=== PATIENT | female | born 1965 | race Caucasian/White ===

== ENCOUNTER 2022-10-12 16:54 | Observation (INO) | payer BC ==
[2022-10-12 18:00] LABS: Basophils # (A) 0.1 k/uL (0-0.2); Basophils % (A) 1 %; Eosinophils # (A) 0.2 k/uL (0-0.7); Eosinophils % (A) 3 %; HCT 46.6 % (34.0-46.0); HGB 15.4 gm/dL (11.4-16.0); Lymphocytes # (A) 1.9 k/uL (1.0-4.8); Lymphocytes % (A) 29 %; MCH 31.4 pg (25.0-35.0); MCV 95.2 fL (80.0-100.0); Mean Platelet Volume 8.2; Monocytes # (A) 0.5 k/uL (0-1.0); Monocytes % (A) 8 %; Neutrophils # (A) 3.9 k/uL (1.3-7.7); Neutrophils % (A) 59 %; Platelet Count 264 k/uL (150-450); RBC 4.89 m/uL (3.80-5.40); RDW 12.1 % (11.5-15.5); WBC 6.7 k/uL (3.8-10.6)
[2022-10-12] MEDS ORDERED: HYDROmorphone 1 MG/ML 1 ML SYRINGE IVP STA (18:02)
[2022-10-12] MEDS ORDERED: ONDANSETRON 4 MG/2 ML VIAL IVP STA (18:02)
[2022-10-12] MEDS ORDERED: FAMOTIDINE 20 MG/2 ML VIAL IV STA (18:02)
[2022-10-12] MEDS ORDERED: PANTOPRAZOLE 40 MG/10 ML VIAL IVP STA (18:02)
[2022-10-12 18:16] LABS: INR 0.9 (<1.2); Partial Thromboplastin Time 23.3 sec (22.0-30.0)
[2022-10-12 18:17] LABS: ALT 63 U/L (4-34); AST 41 U/L (14-36); African American GFR (CKD) >90 (>60 ml/min/1.73 sqM); Albumin 4.8 g/dL (3.5-5.0); Alkaline Phosphatase 68 U/L (38-126); Anion Gap 13 mmol/L; Blood Urea Nitrogen 13 mg/dL (7-17); Calcium 10.4 mg/dL (8.4-10.2); Carbon Dioxide 22 mmol/L (22-30); Chloride 103 mmol/L (98-107); Glucose 102 mg/dL (74-99); Lipase 145 U/L (23-300); Non-African American GFR(CKD) >90 (>60 ml/min/1.73 sqM); Sodium 138 mmol/L (137-145); Total Bilirubin 0.8 mg/dL (0.2-1.3); Total Protein 8.1 g/dL (6.3-8.2)
[2022-10-12 18:26] LABS: NT-Pro-B-Type Natriuretic Pept 156 pg/mL
--- NOTE | 2022-10-12 18:36 | ED ---
Chest Pain HPI - General Source: patient Mode of arrival: ambulatory Limitations: no limitations <Bernadette Gustafson - Last Filed: 10/12/22 21:44> <Kurtis Diego - Last Filed: 10/12/22 22:40> - General Chief Complaint: Chest Pain Stated Complaint: chest pain Time Seen by Provider: 10/12/22 17:10 - History of Present Illness Initial Comments: 57-year-old female presents to the emergency room reporting chest pain. States that it started last night. Describes as a heaviness in the substernal region which radiates straight through to her shoulder blades. The pain eased up a little bit overnight and then became increasingly worse this afternoon. She admits to nausea but denies vomiting. No associated shortness of breath. Denies any fevers, chills or cough. No history of DVT or PE. No history of cardiac disease. Denies any numbness or tingling in her extremities. No other alleviating, precipitating modifying factors (Bernadette Gustafson) - Related Data Home Medications Medication Instructions Recorded Confirmed ALPRAZolam [Xanax] 0.25 mg PO TID PRN 10/12/22 10/12/22 Acetaminophen [Tylenol 8 Hour] 650 - 1,300 mg PO Q8H PRN 10/12/22 10/12/22 Ibuprofen [Advil] 200 - 400 mg PO Q8H PRN 10/12/22 10/12/22 lisinopriL [Zestril] 5 mg PO HS 10/12/22 10/12/22 Allergies Allergy/AdvReac Type Severity Reaction Status Date / Time adhesive tape Allergy Rash/Hives Verified 10/12/22 17:56 morphine AdvReac Vomiting Verified 10/12/22 17:56 sulfamethoxazole AdvReac Vomiting Verified 10/12/22 17:56 [From Bactrim] trimethoprim [From Bactrim] AdvReac Vomiting Verified 10/12/22 17:56 synthetic steroids Allergy red man Uncoded 10/12/22 17:56 syndrome Review of Systems ROS Other: All systems not noted in ROS Statement are negative. <Bernadette Gustafson - Last Filed: 10/12/22 21:44> ROS Other: All systems not noted in ROS Statement are negative. <Kurtis Diego - Last Filed: 10/12/22 22:40> ROS Statement: Those systems with pertinent positive or pertinent negative responses have been documented in the HPI. General Exam Limitations: no limitations General appearance: alert, in no apparent distress, other (tearful) Head exam: Present: atraumatic, normocephalic, normal inspection Eye exam: Present: normal appearance, PERRL, EOMI. Absent: scleral icterus, conjunctival injection, periorbital swelling ENT exam: Present: normal exam, mucous membranes moist Neck exam: Present: normal inspection. Absent: tenderness, meningismus, lymphadenopathy Respiratory exam: Present: normal lung sounds bilaterally. Absent: respiratory distress, wheezes, rales, rhonchi, stridor Cardiovascular Exam: Present: regular rate, normal rhythm, normal heart sounds. Absent: systolic murmur, diastolic murmur, rubs, gallop, clicks GI/Abdominal exam: Present: soft, normal bowel sounds. Absent: distended, tenderness, guarding, rebound, rigid Extremities exam: Present: normal inspection, full ROM, normal capillary refill. Absent: tenderness, pedal edema, joint swelling, calf tenderness Back exam: Present: normal inspection Neurological exam: Present: alert, oriented X3, CN II-XII intact Psychiatric exam: Present: normal affect, normal mood Skin exam: Present: warm, dry, intact, normal color. Absent: rash <Bernadette Gustafson - Last Filed: 10/12/22 21:44> Course Vital Signs 10/12/22 10/12/22 10/12/22 17:04 17:22 17:30 Temperature 97.8 F Pulse Rate 87 79 75 Respiratory 20 18 18 Rate Blood Pressure 151/93 137/89 137/82 O2 Sat by Pulse 98 98 98 Oximetry 10/12/22 10/12/22 10/12/22 17:40 18:00 18:10 Temperature Pulse Rate 75 76 68 Respiratory 18 22 18 Rate Blood Pressure 135/93 145/90 133/56 O2 Sat by Pulse 98 96 100 Oximetry 10/12/22 10/12/22 10/12/22 18:20 18:40 18:50 Temperature Pulse Rate 74 66 68 Respiratory 18 19 18 Rate Blood Pressure 136/67 129/76 119/69 O2 Sat by Pulse 99 98 96 Oximetry 10/12/22 10/12/22 10/12/22 19:00 19:10 19:30 Temperature Pulse Rate 70 64 67 Respiratory 18 18 6 L Rate Blood Pressure 119/69 127/70 124/62 O2 Sat by Pulse 96 94 L 98 Oximetry 10/12/22 10/12/22 10/12/22 20:00 20:30 21:00 Temperature Pulse Rate 71 64 84 Respiratory 12 19 23 Rate Blood Pressure 120/71 116/59 117/63 O2 Sat by Pulse 98 97 96 Oximetry 10/12/22 10/12/22 21:30 21:59 Temperature 97.3 F L Pulse Rate 65 Respiratory 11 L Rate Blood Pressure 113/60 O2 Sat by Pulse 96 Oximetry Chest Pain MDM <SjBernadette A - Last Filed: 10/12/22 21:44> <Kurtis Diego - Last Filed: 10/12/22 22:40> - MDM Was pt. sent in by a medical professional or institution (Dr. PA, GAS OPERATOR, urgent care, hospital, or senior living...) When possible be specific @ -No Did you speak to anyone other than the patient for history (EMS, parent, family, police, friend...)? What history was obtained from this source @ -I spoke with the patient's daughters Did you review nursing and triage notes (agree or disagree)? Why? @ -I reviewed and agree with nursing and triage notes Were old charts reviewed (outside hosp., previous admission, EMS record, old EKG, old radiological studies, urgent care reports/EKG's, senior living records)? Report findings @ -No old charts were reviewed Differential Diagnosis (chest pain, altered mental status, abdominal pain women, abdominal pain men, vaginal bleeding, weakness, fever, dyspnea, syncope, heada moustapha, dizziness, GI bleed, back pain, seizure, CVA, palpatations, mental health, musculoskeletal)? @ -Differential Chest Pain: Stable Angina, Unstable Angina, STEMI, NSTEMI Aortic Dissection, Pneumothorax, Musculoskeletal, Esophageal Spasm GERD, Cholecystitis, Pancreatitis, Zoster, this is not meant to be an all-inclusive list. EKG interpreted by me (3pts min.). @ -Yes and demonstrates sinus rhythm with a rate of 89. IA of 192. QRS 102. QTC of 429. Incomplete right bundle-branch block. No acute ST segment elevati ons X-rays interpreted by me (1pt min.). @ -None done CT interpreted by me (1pt min.). @ -CT is ordered and will be interpreted by Dr. Diego U/S interpreted by me (1pt. min.). @ -None done What testing was considered but not performed or refused? (CT, X-rays, U/S, labs)? Why? @ -None What meds were considered but not given or refused? Why? @ -None Did you discuss the management of the patient with other professionals (professionals i.e. , PA, GAS OPERATOR, lab, RT, psych nurse, social sciences instructor, pulmonary nurse practitioner, teacher, customer service security officer, employment case manager)? Give summary @ -I spoke with Dr. Diego who will await CT results Was smoking cessation discussed for >3mins.? @ -No Was critical care preformed (if so, how long)? @ -No Were there social determinants of health that impacted care today? How? (Homelessness, low income, unemployed, alcoholism, drug addiction, transportation, low edu. Level, literacy, decrease access to med. care, intermediate, rehab)? @ -No Was there de-escalation of care discussed even if they declined (Discuss DNR or withdrawal of care, Hospice)? DNR status @ -No What co-morbidities impacted this encounter? (DM, HTN, Smoking, COPD, CAD, Cancer, CVA, ARF, Chemo, Hep., AIDS, mental health diagnosis, sleep apnea, morbid obesity)? @ -None Was patient admitted / discharged? Hospital course, mention meds given and route, prescriptions, significant lab abnormalities, going to OR and other pertinent info. @ -Upon arrival the patient is placed into room 19. A thorough history and physical exam was performed. IV access is established and laboratory studies were conducted. Patient was given 1 mg of Dilaudid, 4 mg of Zofran, 20 mg of Protonix. Laboratory studies are reviewed. D-dimer is negative. I did order a CT of the patient's chest and she continues to report chest discomfort with radiation straight through to the back. Patient was aware of the risks and benefits of performing a CT was agreeable. A CT is pending at this time the case will be signed out to Dr. Diego Undiagnosed new problem with uncertain prognosis? @ -yes Drug Therapy requiring intensive monitoring for toxicity (Heparin, Nitro, Insulin, Cardizem)? @ -No Were any procedures done? @ -No Diagnosis/symptom? @ -acute chest pain Acute, or Chronic, or Acute on Chronic? @ -acute Uncomplicated (without systemic symptoms) or Complicated (systemic symptoms)? @ -Complicated Side effects of treatment? @ -No Exacerbation, Progression, or Severe Exacerbation? @ -No Poses a threat to life or bodily function? How? (Chest pain, [place], [place], pneumonia, PE, COPD, DKA, ARF, appy, cholecystitis, CVA, Diverticulitis, Homicidal, Suicidal, threat to staff... and all critical care pts) @ -Yes, chest pain could indicate dissection, aneurysm, coronary event or PE all of which the patient is worked up for (Bernadette Gustafson) CT negative for aortic dissection or aneurysm. Patient continues to have symptoms will be admitted for symptomatically treatment, serial cardiac enzymes, will obtain ultrasound of the gallbladder which is currently pending. (Kurtis Diego) Disposition <Bernadette Gustafson - Last Filed: 10/12/22 21:44> Is patient prescribed a controlled substance at d/c from ED?: No Time of Disposition: 22:40 <Kurtis Diego - Last Filed: 10/12/22 22:40> Clinical Impression: Chest pain, Breast nodule Disposition: ADMITTED IP TO THIS HOSP Condition: Stable Referrals: Adolfo Palma MD [Primary Care Provider] - 1-2 days
--- NOTE | 2022-10-12 22:02 | CT ---
EXAMINATION TYPE: CT angio chest CT DLP: 776.8 mGycm, Automated exposure control for dose reduction was used. DATE OF EXAM: 10/12/2022 9:44 PM COMPARISON: Chest radiograph from same day. Multiple CTs of the chest with most recent on . CLINICAL INDICATION:Female, 57 years old with history of chest pain to back; Chest and back pain. TECHNIQUE/CONTRAST: CTA scan of the thorax is performed with IV Contrast, patient injected with 100 ml mL of Isovue 370, MIP images are created and reviewed these are created on a separate workstation.. FINDINGS: Lungs/Pleura: No evidence of focal consolidation, pleural effusion or pneumothorax. Airway: The heart is mildly enlarged for size. Vasculature: No evidence for intramural hematoma on noncontrast. No evidence of intimal flap to sugge st dissection. No aneurysm identified. Scattered atherosclerotic disease. Mediastinum: No gross evidence of adenopathy. Musculoskeletal: No acute osseous abnormalities Soft Tissues: Right breast nodular area measuring 14 x 12 mm. With eccentric axillary lymph node whic h is thickened with the cortex measuring up to 6 mm. Additional area in the left inferior r breast medially measuring 20 x 7 mm. Lower neck: No significant findings. Upper Abdomen: Diffuse low-attenuation to the liver parenchyma.. IMPRESSION: 1. Right breast nodule measuring up to 14 mm with abnormal appearing lymph node in the right axilla. Further workup with diagnostic mammogram with ultrasound recommended. 2. Left breast inferior medial nodular-like area also should be evaluated with diagnostic ultrasound . 3. No evidence for aortic dissection, intramural hematoma, aortic aneurysm or acute process. 4. Hepatic steatosis.
[2022-10-12] MEDS ORDERED: HYDROmorphone 0.5 MG/0.5 ML SYRINGE IVP PRN (22:36)
[2022-10-12] MEDS ORDERED: NALOXONE 0.4 MG/ML 1 ML VIAL IV PRN (22:36)
[2022-10-12] MEDS ORDERED: ONDANSETRON 4 MG/2 ML VIAL IVP PRN (22:36)
[2022-10-12] MEDS ORDERED: ASPIRIN 325 MG TAB PO STA (22:38)
[2022-10-12] MEDS ORDERED: SODIUM CHLORIDE 0.9% 1,000 ML IV SCH (22:45)
--- NOTE | 2022-10-12 23:25 | US ---
EXAM: US Abdomen Limited, Gallbladder CLINICAL HISTORY: ITS.REASON US Reason: epigastric pain TECHNIQUE: Real-time ultrasound of the right upper quadrant with image documentation. COMPARISON: No relevant prior studies available. FINDINGS: Liver: Hepatic steatosis. Gallbladder: Negative Nathan sign. No gallstones. Common bile duct: Unremarkable as visualized. No stones. No dilation. Pancreas: Unremarkable as visualized. IMPRESSION: Hepatic steatosis.
[2022-10-12] MEDS: ASPIRIN 81 MG PO SCH (23:50)
[2022-10-13] MEDS: ACETAMINOPHEN TAB 325 MG TAB PO PRN ×2 (00:22→08:52)
[2022-10-13 02:56] VITALS: RESP 16; TEMP 97.9
[2022-10-13 03:58] LABS: Basophils % (A) 0 %; Eosinophils # (A) 0.1 k/uL (0-0.7); Eosinophils % (A) 2 %; HGB 14.4 gm/dL (11.4-16.0); Lymphocytes # (A) 1.9 k/uL (1.0-4.8); Lymphocytes % (A) 24 %; MCH 32.3 pg (25.0-35.0); MCHC 34.2 g/dL (31.0-37.0); MCV 94.4 fL (80.0-100.0); Mean Platelet Volume 8.4; Monocytes # (A) 0.4 k/uL (0-1.0); Monocytes % (A) 5 %; Neutrophils % (A) 66 %; Platelet Count 242 k/uL (150-450); RBC 4.45 m/uL (3.80-5.40); RDW 12.4 % (11.5-15.5); WBC 7.6 k/uL (3.8-10.6)
[2022-10-13 04:05] LABS: ALT 51 U/L (4-34); AST 34 U/L (14-36); African American GFR (CKD) >90 (>60 ml/min/1.73 sqM); Albumin 3.9 g/dL (3.5-5.0); Alkaline Phosphatase 51 U/L (38-126); Amylase 44 U/L (30-110); Anion Gap 8 mmol/L; Blood Urea Nitrogen 10 mg/dL (7-17); Calcium 9.1 mg/dL (8.4-10.2); Carbon Dioxide 23 mmol/L (22-30); Chloride 106 mmol/L (98-107); Glucose 103 mg/dL (74-99); Lipase 100 U/L (23-300); Non-African American GFR(CKD) >90 (>60 ml/min/1.73 sqM); Potassium 4.6 mmol/L (3.5-5.1); Sodium 137 mmol/L (137-145); Total Bilirubin 0.6 mg/dL (0.2-1.3); Total Protein 6.6 g/dL (6.3-8.2)
[2022-10-13] MEDS ORDERED: ALPRAZolam 0.25 MG TAB PO PRN (06:49)
--- NOTE | 2022-10-13 06:51 | P.HPIM ---
History of Present Illness H&P Date: 10/12/22 Chief Complaint: chest pain 57 year old female with hypertension she is coming in due to sudden onset central retrosternal chest pain 9/10 sharp pain radiates to the back , with dizziness and worse with breathing, no sweating, no nausea or vomiting , denies any trauma. denies any cardiac history , no fever ,chills or URI symptoms she recently was moving furniture and deep cleaning her house. no recent travel or hospital stay , no history of blood clots, no cardiac workup in the past her dad has a pacemaker but not aware of cardiac history details denies smoking illicit drugs or alcohol review of systems Pertinent positives as noted in HPI. All other systems were reviewed and are negative Constitutional: No acute distress, conversant, pleasant Eyes: Anicteric sclerae, moist conjunctiva, Pupils equal round reactive to light ENMT: NC/AT Oropharynx clear, no erythema, or exudates Neck: Supple, no masses, or JVD No carotid bruits No thyromegaly Lungs: Clear to auscultation Clear to percussion Normal respiratory effort, no accessory muscle use Cardiovascular: Heart regular in rate and rhythm, No murmurs, gallops, or rubs No peripheral edema Abdominal: Soft Nontender, no guarding, rebound or rigidity Abdomen moving with respiration Normoactive bowel sounds No hepatomegaly, No splenomegaly No palpable mass No abdominal wall hernia noted Skin: Normal temperature, tone, texture, turgor No induration No subcutaneous nodules No rash, lesions No ulcers Extremities: No digital cyanosis No clubbing Pedal pulses intact and symmetrical Radial pulses intact and symmetrical No calf tenderness Psychiatric: Alert and oriented to person, place and time Appropriate affect fair judgement Neuro Muscles Strength 5/5 in all 4 extremities Sensation to light touch grossly present throughout Cranial nerves II-XII grossly intact Lymphatics: no palpable cervical or supraclavicular lymph nodes Past Medical History Past Medical History: Hyperlipidemia, Hypertension History of Any Multi-Drug Resistant Organisms: None Reported Past Surgical History: Appendectomy, Hysterectomy, Orthopedic Surgery Past Anesthesia/Blood Transfusion Reactions: No Reported Reaction Past Psychological History: Anxiety Additional Psychological History / Comment(s): pt and family state pt has anxiety Smoking Status: Never smoker Medications and Allergies Home Medications Medication Instructions Recorded Confirmed Type ALPRAZolam [Xanax] 0.25 mg PO TID PRN 10/12/22 10/12/22 History Acetaminophen [Tylenol 8 Hour] 650 - 1,300 mg PO Q8H PRN 10/12/22 10/12/22 History Ibuprofen [Advil] 200 - 400 mg PO Q8H PRN 10/12/22 10/12/22 History lisinopriL [Zestril] 5 mg PO HS 10/12/22 10/12/22 History Allergies Allergy/AdvReac Type Severity Reaction Status Date / Time adhesive tape Allergy Rash/Hives Verified 10/12/22 17:56 morphine AdvReac Vomiting Verified 10/12/22 17:56 sulfamethoxazole AdvReac Vomiting Verified 10/12/22 17:56 [From Bactrim] trimethoprim [From Bactrim] AdvReac Vomiting Verified 10/12/22 17:56 synthetic steroids Allergy red man Uncoded 10/12/22 17:56 syndrome Physical Exam Vitals: Vital Signs Temp Pulse Pulse Resp BP BP Pulse Ox 10/13/22 03:34 68 10/13/22 00:34 97.9 F 68 16 129/73 97 10/12/22 23:30 98.0 F 76 17 143/81 97 10/12/22 22:47 73 18 133/67 99 10/12/22 21:59 97.3 F L 10/12/22 21:30 65 11 L 113/60 96 10/12/22 21:00 84 23 117/63 96 10/12/22 20:30 64 19 116/59 97 10/12/22 20:00 71 12 120/71 98 10/12/22 19:30 67 6 L 124/62 98 10/12/22 19:10 64 18 127/70 94 L 10/12/22 19:00 70 18 119/69 96 10/12/22 18:50 68 18 119/69 96 10/12/22 18:40 66 19 129/76 98 10/12/22 18:20 74 18 136/67 99 10/12/22 18:10 68 18 133/56 100 10/12/22 18:00 76 22 145/90 96 10/12/22 17:40 75 18 135/93 98 10/12/22 17:30 75 18 137/82 98 10/12/22 17:22 79 18 137/89 98 10/12/22 17:04 97.8 F 87 20 151/93 98 Intake and Output 10/12/22 10/12/22 10/13/22 14:59 22:59 06:59 Other: # Voids 2 Weight 86.183 kg Results CBC & Chem 7: 10/13/22 03:43 10/13/22 03:43 Labs: Abnormal Lab Results - Last 24 Hours (Table) 10/12/22 10/12/22 10/13/22 Range/Units 17:22 17:22 03:43 Hct 46.6 H (34.0-46.0) % Glucose 102 H 103 H (74-99) mg/dL Calcium 10.4 H (8.4-10.2) mg/dL AST 41 H (14-36) U/L ALT 63 H 51 H (4-34) U/L Thrombosis Risk Factor Assmnt - Choose All That Apply Any of the Below Risk Factors Present?: Yes Each Factor Represents 1 point: Age 41-60 years, Obesity (BMI >25) Thrombosis Risk Factor Assessment Total Risk Factor Score: 2 Thrombosis Risk Factor Assessment Level: Low Risk Assessment and Plan Assessment: 57 year old female with atypical chest pain , all workup negative , I discssed the case with ED doc and I accepted the admission for atypical chest pain to rule out ACS with anticipated length of stay < 2 midnights atypical chest pain d dimer negative CTA chest negative , but showed 2 breast nodules aspirin daily trops negative X 2 cardiology consult protonix daily EKG no acute st changes hypertension, controlled resume lisinopril incidental finding of breast nodules , patient made aware to follow up with mammograms full code DVT PPX heparin sc tid
[2022-10-13] MEDS: ASPIRIN 81 MG PO SCH (08:51)
[2022-10-13] MEDS ORDERED: PANTOPRAZOLE 40 MG/10 ML VIAL IV SCH (09:00)
[2022-10-13 10:12] VITALS: BP 110/56; PULSE 62
--- NOTE | 2022-10-13 10:38 | P.CRDCN ---
History of Present Illness Consult date: 10/13/22 Consult reason: chest pain History of present illness: History of present illness: This is a 57 year old female with no previous cardiac history, no previous cardiac workup. She has a past medical history of hypertension, hyperlipidemia unable to tolerate statins and recently stopped Repatha with advisement of PCP, generalized anxiety disorder. We have been asked to evaluate the patient for chest pain. Patient states she developed chest pain between her shoulder blades and then came around a wrapped around her chest that was a heaviness. Started on Wednesday evening and was constant through Wednesday but less severe. He remained there and seemed to be relieved when she belched. She states she has been doing a lot of cleaning up. For her grandchild. She also noticed the pain when she turned in bed. She had a similar episode on Wednesday of last week and she took Tums with some relief. She denies having any shortness of breath, but is noted anxiety. No lower extremity edema, no dizziness. She has had a little lightheadedness and a little flutter in her chest. No cough no fever, no blood in her stools, no blood in urine. No TIA symptoms. Patient is a nonsmoker. No history of diabetes. EKG sinus rhythm with no acute ST changes. CTA of the chest revealed a right breast nodule measuring 14 mm an abnormal left node in the right axilla. Left breast inferior medial nodular-like area reevaluated by ultrasound. Hepatic steatosis. No evidence of aortic dissection, intramural hematoma, aortic aneurysm or acute process. Gallbladder ultrasound revealed hepatic steatosis CBC is unremarkable. D-dimer less than 0.17. Electrolytes renal function normal. Troponin negative 3. ALT 51 otherwise liver function tests are currently normal. Lipase 100. Home cardiac medications: Lisinopril 5 mg at bedtime Review Of Systems: At the time of my evaluation: Constitutional: No fever, no chills. No weakness, fatigue or lethargy. EENT: No headache. No dizziness. Lungs: No shortness of breath, cough, no sputum production. No wheezing. Cardiovascular: No chest pain, no lower extremity edema. No palpitations. No paroxysmal nocturnal dyspnea. No orthopnea. No lightheadedness or dizziness. No syncopal episodes. Abdominal: No abdominal pain. No nausea, vomiting. No diarrhea. No constipation. No bloody or tarry stools. Genitourinary: No dysuria.. No urinary retention. Musculoskeletal: No myalgias. No muscle weakness, no frequent falls. No back pain. No neck pain. Integumentary: No wounds. No rash. No unusual bruising. Neurologic: No aphasia. No facial droop. No change in mentation. No head injury. No headache. Physical examination: Gen: This is a 57-year-old female. She is resting but appears to be comfortable and in no acute distress. VS: reviewed HEENT: Head is atraumatic, normocephalic. Pupils equal, round. Sclerae is anicteric. NECK: Supple. No JVD. . LUNGS: Clear to auscultation. No wheezes or rhonchi. No intercostal retractions. HEART: Regular rate and rhythm. No murmur. ABDOMEN: Soft No tenderness. EXTREMITIES: No pedal edema. No calf tenderness. NEUROLOGICAL: Patient is awake, alert and oriented x3. Assessment: Chest pain, acute coronary syndrome ruled out, most likely musculoskeletal related Hypertension Hyperlipidemia intolerant of statins Plan: Continue lisinopril Obtain stress echocardiogram Obtain 2-D echocardiogram and Doppler study to assess cardiac structure and function If stress test and echocardiogram are unremarkable, patient is cleared for discharge from cardiology and may follow-up in the office in one to 2 weeks. Thank you kindly for this consultation. Nurse practitioner note has been reviewed, I agree with documented findings and plan of care. Patient was seen and examined. Past Medical History Past Medical History: Hyperlipidemia, Hypertension History of Any Multi-Drug Resistant Organisms: None Reported Past Surgical History: Appendectomy, Hysterectomy, Orthopedic Surgery Past Anesthesia/Blood Transfusion Reactions: No Reported Reaction Past Psychological History: Anxiety Additional Psychological History / Comment(s): pt and family state pt has anxiet y Smoking Status: Never smoker Medications and Allergies Home Medications Medication Instructions Recorded Confirmed Type ALPRAZolam [Xanax] 0.25 mg PO TID PRN 10/12/22 10/12/22 History Acetaminophen [Tylenol 8 Hour] 650 - 1,300 mg PO Q8H PRN 10/12/22 10/12/22 History Ibuprofen [Advil] 200 - 400 mg PO Q8H PRN 10/12/22 10/12/22 History lisinopriL [Zestril] 5 mg PO HS 10/12/22 10/12/22 History Allergies Allergy/AdvReac Type Severity Reaction Status Date / Time adhesive tape Allergy Rash/Hives Verified 10/12/22 17:56 morphine AdvReac Vomiting Verified 10/12/22 17:56 sulfamethoxazole AdvReac Vomiting Verified 10/12/22 17:56 [From Bactrim] trimethoprim [From Bactrim] AdvReac Vomiting Verified 10/12/22 17:56 synthetic steroids Allergy red man Uncoded 10/12/22 17:56 syndrome Physical Exam Vitals: Vital Signs Temp Pulse Pulse Resp BP BP Pulse Ox 10/13/22 03:34 68 10/13/22 00:34 97.9 F 68 16 129/73 97 10/12/22 23:30 98.0 F 76 17 143/81 97 10/12/22 22:47 73 18 133/67 99 10/12/22 21:59 97.3 F L 10/12/22 21:30 65 11 L 113/60 96 10/12/22 21:00 84 23 117/63 96 10/12/22 20:30 64 19 116/59 97 10/12/22 20:00 71 12 120/71 98 10/12/22 19:30 67 6 L 124/62 98 10/12/22 19:10 64 18 127/70 94 L 10/12/22 19:00 70 18 119/69 96 10/12/22 18:50 68 18 119/69 96 10/12/22 18:40 66 19 129/76 98 10/12/22 18:20 74 18 136/67 99 10/12/22 18:10 68 18 133/56 100 10/12/22 18:00 76 22 145/90 96 10/12/22 17:40 75 18 135/93 98 10/12/22 17:30 75 18 137/82 98 10/12/22 17:22 79 18 137/89 98 10/12/22 17:04 97.8 F 87 20 151/93 98 Intake and Output 10/12/22 10/13/22 10/13/22 22:59 06:59 14:59 Other: # Voids 2 Weight 86.183 kg Results 10/13/22 03:43 10/13/22 03:43 Cardiac Enzymes 10/12/22 10/12/22 10/12/22 Range/Units 17:22 17:22 23:58 AST 41 H (14-36) U/L Troponin I <0.012 <0.012 (0.000-0.034) ng/mL 10/13/22 10/13/22 Range/Units 03:43 03:43 AST 34 (14-36) U/L Troponin I <0.012 (0.000-0.034) ng/mL Coagulation 10/12/22 Range/Units 17:22 PT 10.0 (9.0-12.0) sec APTT 23.3 (22.0-30.0) sec CBC 10/12/22 10/13/22 Range/Units 17: 03:43 WBC 6.7 7.6 (3.8-10.6) k/uL RBC 4.89 4.45 (3.80-5.40) m/uL Hgb 15.4 14.4 (11.4-16.0) gm/dL Hct 46.6 H 42.0 (34.0-46.0) % Plt Count 264 242 (150-450) k/uL Comprehensive Metabolic Panel 10/12/22 10/13/22 Range/Units 17:22 03:43 Sodium 138 137 (137-145) mmol/L Potassium 4.0 4.6 (3.5-5.1) mmol/L Chloride 103 106 (98-107) mmol/L Carbon Dioxide 22 23 (22-30) mmol/L BUN 13 10 (7-17) mg/dL Creatinine 0.56 0.54 (0.52-1.04) mg/dL Glucose 102 H 103 H (74-99) mg/dL Calcium 10.4 H 9.1 (8.4-10.2) mg/dL AST 41 H 34 (14-36) U/L ALT 63 H 51 H (4-34) U/L Alkaline Phosphatase 68 51 (38-126) U/L Total Protein 8.1 6.6 (6.3-8.2) g/dL Albumin 4.8 3.9 (3.5-5.0) g/dL Current Medications Generic Name Dose Route Start Last Admin Trade Name Freq PRN Reason Stop Dose Admin Acetaminophen 650 mg 10/12/22 22:36 10/13/22 00:22 Acetaminophen Tab 325 Mg Tab PO 650 mg Q6HR PRN Administration Mild Pain or Fever > 100.5 Alprazolam 0.25 mg 10/13/22 06:49 Alprazolam 0.25 Mg Tab PO TID PRN Anxiety Aspirin 324 mg 10/12/22 23:15 10/12/22 23:50 Aspirin 81 Mg PO 324 mg DAILY RAFAELA Administration Hydromorphone HCl 0.5 mg 10/12/22 22:36 Hydromorphone 0.5 Mg/0.5 Ml Syringe IVP Q3HR PRN Moderate Pain (Scale 4 to 6) Sodium Chloride 1,000 mls @ 75 mls/hr 10/12/22 22:45 10/12/22 22:59 Saline 0.9% IV 75 mls/hr .[id number] RAFAELA Administration Lisinopril 5 mg 10/13/22 21:00 Lisinopril 5 Mg Tab PO HS RAFAELA Naloxone HCl 0.2 mg 10/12/22 22:36 Naloxone 0.4 Mg/Ml 1 Ml Vial IV Q2M PRN Opioid Reversal Ondansetron HCl 4 mg 10/12/22 22:36 10/13/22 00:22 Ondansetron 4 Mg/2 Ml Vial IVP 4 mg Q8HR PRN Administration Nausea And Vomiting Pantoprazole Sodium 40 mg 10/13/22 09:00 Pantoprazole 40 Mg/10 Ml Vial IV DAILY RAFAELA Intake and Output 10/12/22 10/13/22 10/13/22 22:59 06:59 14:59 Other: # Voids 2 Weight 86.183 kg 10/13/22 03:43 10/13/22 03:43
--- NOTE | 2022-10-13 11:03 | CA ---
Transthoracic Echo Report Name: Silva Delaney Age: 57 Gender: F : 1965 Exam Date: 10/13/2022 09:48 Exam Location: [facility] Ht (in): 65 Wt (lb): 190 Ordering Physician: Sera Knight Attending/Referring Phys: [id number], Antonia [employer] Worker Yadira Colmenares [facility] Procedure CPT: Indications: LVF Cardiac Hx: Technical Quality: Fair Contrast 1: Total Dose (mL): Contrast 2: Total Dose (mL): MEASUREMENTS (Male / Female) Normal Values 2D ECHO LV Diastolic Diameter PLAX 4.4 cm 4.2 - 5.9 / 3.9 - 5.3 cm LV Systolic Diameter PLAX 3.3 cm IVS Diastolic Thickness 0.7 cm 0.6 - 1.0 / 0.6 - 0.9 cm LVPW Diastolic Thickness 0.9 cm 0.6 - 1.0 / 0.6 - 0.9 cm LV Relative Wall Thickness 0.4 LVOT Diameter 2.0 cm M-MODE Aortic Root Diameter MM 2.7 cm LA Systolic Diameter MM 4.3 cm LA Ao Ratio MM 1.6 AV Cusp Separation MM 2.1 cm DOPPLER AV Peak Velocity 125.0 cm/s AV Peak Gradient 6.3 mmHg AV Mean Velocity 90.7 cm/s AV Mean Gradient 3.7 mmHg AV Velocity Time Integral 27.3 cm LVOT Peak Velocity 79.7 cm/s LVOT Peak Gradient 2.5 mmHg LVOT Velocity Time Integral 17.7 cm LVOT Stroke Volume 57.8 cm??? LVOT Stroke Volume Index 29.8 ml/m??? LVOT Cardiac Index 1860.4 cm???/min???m??? AV Area Cont Eq vti 2.1 cm??? AV Area Cont Eq pk 2.1 cm??? Mitral E Point Velocity 70.6 cm/s Mitral A Point Velocity 54.4 cm/s Mitral E to A Ratio 1.3 MV Deceleration Time 201.4 ms LV E' Lateral Velocity 11.8 cm/s Mitral E to LV E' Lateral Ratio 6.0 LV E' Septal Velocity 9.1 cm/s Mitral E to LV E' Septal Ratio 7.7 TR Peak Velocity 208.1 cm/s TR Peak Gradient 17.3 mmHg Right Atrial Pressure 8.0 mmHg Pulmonary Artery Systolic Pressu 25.3 mmHg Right Ventricular Systolic Press 25.3 mmHg FINDINGS Left Ventricle Normal Left ventricular size, wall thickness, systolic function with no obvious regional wall motion abnormalities. Left ventricular ejection fraction is estimated at 55-60%. Right Ventricle Right ventricle at upper limits of normal. Moderate band was noted Right Atrium Normal right atrial size. Left Atrium Normal left atrial size. Mitral Valve Structurally normal mitral valve. Mitral valve thickened. [id number] mitral regurgitation. Aortic Valve Aortic valve not well visualized. No aortic regurgitation. Tricuspid Valve Structurally normal tricuspid valve. Mild tricuspid regurgitation. Pulmonic Valve Structurally normal pulmonic valve. Trace pulmonic regurgitation. Pericardium No pericardial effusion. Echo free space anterior to the right ventricle likely represents a fat pad. Aorta Normal size aortic root. CONCLUSIONS 1. Normal left ventricular size and systolic function 2. Mild to moderate mitral with mild tricuspid regurgitation Previewed by: Dr. Leobardo Machado MD (Electronically Signed) Final Date: 13 October 2022 11:02
--- NOTE | 2022-10-13 11:56 | CA ---
Stress Echo Report Silva Delaney Age: 57 Gender: F : 1965 Exam Date: 10/13/2022 11:15 Exam Location: [facility] Ht (in): 65 Wt (lb): 190 Ordering Physician: Sera Knight Referring Physician: Antonia Zamora;[id number] [employer] Attendant: Abby Willis RDCS Technologist Procedure CPT: Indication: CP ICD-9 Codes: Rhythm: Patient History: Atypical angina Cardiac Medications: Medications in past 24 hours: Contrast: Stress Results Protocol: Joni Total dose(mL): Exercise Duration (min:sec): 10:[address] Depression (mm): Angina Score: [place] Score: METS: 11.5 Resting HR: 80 Resting BP: 142 / 91 Peak HR: 158 Peak BP: 195 / 40 Max Predicted HR: 162 98 % Max Predicted HR Target HR: 138 Double Product: [id number] Stress Summary: The patient's target heart rate was achieved BP Response: Normal Reason for Termination: MAX EXERTION/TARGET HR Cardiac Symptoms: NO SYMPTOMS ECG Analysis Resting ECG: Normal sinus rhythm, normal ECG Stress ECG: No abnormal ST/T wave changes with exercise Arrhythmia: None Echo Analysis Resting Echo: Normal resting echocardiogram. Peak Echo Analysis: Normal wall thickening and motion MEASUREMENTS (Male/Female) Normal Values CONCLUSIONS 1. Good exercise tolerance 2. Normal electrocardiographic response to exercise 3. Normal stress echocardiogram with no evidence of stress induced ischemia Dr. Leobardo Machado MD (Electronically Signed) Final Date: 13 October 2022 11:55
--- NOTE | 2022-10-13 12:19 | P.DS ---
Providers Date of admission: 10/12/22 22:38 Expected date of discharge: 10/13/22 Attending physician: Сергей Lake MD Consults: 10/12/22 22:36 Consult Physician Routine Consulting Provider: Lyssa Kramer Consult Reason/Comments: Breast nodule Do you want consulting provider notified?: Yes Consult Physician Routine Consulting Provider: Juan Lomeli Consult Reason/Comments: CP Do you want consulting provider notified?: Yes Primary care physician: Adolfo Palma Hospital Course: Discharge Diagnosis: GERD Chest pain, ACS ruled out Hypertension Breast nodules Transaminitis Hepatic steatosis Hospital Course: 57 year old female with hypertension presented with chest pain. CBC unremarkable. Troponin negative 3. AST 41, ALT 63. EKG showed normal sinus rhythm, incomplete right bundle branch block. CTA showed right breast nodule measuring up to 14 mm, with right axillary lymph node with abnormal appearance, and left breast inferior medial nodule. Breast surgery was consulted, no acute interventions, outpatient follow-up. Gallbladder ultrasound showed hepatic steatosis. Cardiology consulted. Echo showed normal LV systolic function. Stress echo was negative. Patient seen and examined at bedside. Vital signs reviewed and stable. General: nontoxic, no distress, appears at stated age Derm: warm, dry Head: atraumatic, normocephalic, symmetric Eyes: EOMI, no lid lag, anicteric sclera Mouth: no lip lesion, mucus membranes moist Cardiovascular: S1S2 reg, no murmur Lungs: CTA bilateral, no rhonchi, no rales , no accessory muscle use Abdominal: soft, nontender to palpation, no guarding, no appreciable organomegaly Ext: no gross muscle atrophy, no edema, no contractures Neuro: CN II-XI grossly intact, no focal neuro deficits Psych: Alert, oriented, appropriate affect A total of 35 minutes of time were spent preparing this complex discharge summary. Patient was discharged on 10/13/22 at 1205. Patient Condition at Discharge: Stable Plan - Discharge Summary Discharge Rx Participant: Yes New Discharge Prescriptions: New Famotidine [Pepcid] 20 mg PO HS #30 tablet Continue Acetaminophen [Tylenol 8 Hour] 650 - 1,300 mg PO Q8H PRN PRN Reason: Pain lisinopriL [Zestril] 5 mg PO HS ALPRAZolam [Xanax] 0.25 mg PO TID PRN PRN Reason: Anxiety Discontinued Ibuprofen [Advil] 200 - 400 mg PO Q8H PRN PRN Reason: Pain Discharge Medication List ALPRAZolam [Xanax] 0.25 mg PO TID PRN 10/12/22 [History] Acetaminophen [Tylenol 8 Hour] 650 - 1,300 mg PO Q8H PRN 10/12/22 [History] lisinopriL [Zestril] 5 mg PO HS 10/12/22 [History] Famotidine [Pepcid] 20 mg PO HS #30 tablet 10/13/22 [Rx] Follow up Appointment(s)/Referral(s): Leobardo Machado MD [STAFF PHYSICIAN] - 1 Week Adolfo Palma MD [Primary Care Provider] - 1-2 days Patient Instructions/Handouts: Noncardiac Chest Pain (DC), Breast Mass (GEN) Activity/Diet/Wound Care/Special Instructions: Please see cardiology and PCP. You need further evaluation of breast nodules. Discharge Disposition: HOME SELF-CARE
--- NOTE | 2022-10-13 13:46 | P.GSHP ---
History of Present Illness H&P Date: 10/13/22 Chief Complaint: Nodules noted on chest CT bilaterally in the breast The patient is a 57-year-old white female who was seen in the emergency Department secondary to chest pain. She was admitted to rule out cardiac etiology of his discomfort. A computed tomography scan was performed which showed bilateral breast nodules. Additionally some right axillary nodularity was identified. The patient states she does not feel any lumps masses or nodules in either breast. She had a bilateral mammogram approximately 1 year ago. She has never had any surgery on her breast. She denies any trauma or infection in the breast. Caffeine: One cup per day Nicotine: Negative Chocolate: Occasional With control pills: Approximately 2 years in the remote past Hormones: Negative Family history: Other: Rectal cancer Father: Orbital non-Hodgkin's lymphoma Paternal grand mother colon or ovarian cancer Paternal aunt colon or ovarian cancer Hormonal history: A 213 . First child born at 23, did not breast-feed Menopause: 53 Surgical history: Appendectomy Back surgery Foot surgery Shoulder surgery Hysterectomy 1 ovary was left Laparoscopic evaluations Medical history: Hypertension High cholesterol Social history: Nicotine: Negative - Constitutional Constitutional: Denies chills, Denies fever - EENT Eyes: denies blurred vision, denies pain Ears: deny: decreased hearing - Breasts Breasts: bilateral: as per HPI - Cardiovascular Cardiovascular: Reports as per HPI - Respiratory Respiratory: Denies cough, Denies 7 - Gastrointestinal Gastrointestinal: Reports as per HPI - Menstruation Menstruation: Reports postmenopausal - Psychiatric Psychiatric: Reports anxiety - Allergic/Immunologic Allergic/Immunologic: Reports as per HPI Past Medical History Past Medical History: Hyperlipidemia, Hypertension History of Any Multi-Drug Resistant Organisms: None Reported Past Surgical History: Appendectomy, Hysterectomy, Orthopedic Surgery Past Anesthesia/Blood Transfusion Reactions: No Reported Reaction Past Psychological History: Anxiety Additional Psychological History / Comment(s): pt and family state pt has anxiety Smoking Status: Never smoker Medications and Allergies Home Medications Medication Instructions Recorded Confirmed Type ALPRAZolam [Xanax] 0.25 mg PO TID PRN 10/12/22 10/12/22 History Acetaminophen [Tylenol 8 Hour] 650 - 1,300 mg PO Q8H PRN 10/12/22 10/12/22 History lisinopriL [Zestril] 5 mg PO HS 10/12/22 10/12/22 History Famotidine [Pepcid] 20 mg PO HS #30 tablet 10/13/22 Rx Allergies Allergy/AdvReac Type Severity Reaction Status Date / Time adhesive tape Allergy Rash/Hives Verified 10/12/22 17:56 morphine AdvReac Vomiting Verified 10/12/22 17:56 sulfamethoxazole AdvReac Vomiting Verified 10/12/22 17:56 [From Bactrim] trimethoprim [From Bactrim] AdvReac Vomiting Verified 10/12/22 17:56 synthetic steroids Allergy red man Uncoded 10/12/22 17:56 syndrome Surgical - Exam Vital Signs Temp Pulse Resp BP Pulse Ox 97.8 F 87 20 151/93 98 10/12/22 17:04 10/12/22 17:04 10/12/22 17:04 10/12/22 17:04 10/12/22 17:04 - General no distress - Eyes normal ocular movement - Neck trachea midline - Respiratory normal respiratory effort, clear to auscultation - Cardiovascular Rhythm: regular Heart Sounds: normal: S1, S2 - Abdomen Abdomen: soft, non tender, no guarding, no rigid, no rebound - Integumentary Normal turgor - Neurologic no disoriented, no combative - Psychiatric oriented to time, oriented to person, oriented to place, speech is normal, memory intact Breast examination: Inspection: Bilateral grade 2 ptosis Right breast: Multiple positional exam fibrocystic changes no dominant masses or nodules of concern Right axilla: No adenopathy of concern Left breast: Multiple positional exam no dominant masses or nodules of concern Left axilla: No adenopathy of concern Results Computed tomography scan reviewed - Labs 10/13/22 03:43 10/13/22 03:43 Abnormal Lab Results - Last 24 Hours (Table) 10/12/22 10/12/22 10/13/22 Range/Units 17:22 17:22 03:43 Hct 46.6 H (34.0-46.0) % Glucose 102 H 103 H (74-99) mg/dL Calcium 10.4 H (8.4-10.2) mg/dL AST 41 H (14-36) U/L ALT 63 H 51 H (4-34) U/L Diabetes panel 10/12/22 10/13/22 Range/Units 17:22 03:43 Sodium 138 137 (137-145) mmol/L Potassium 4.0 4.6 (3.5-5.1) mmol/L Chloride 103 106 (98-107) mmol/L Carbon Dioxide 22 23 (22-30) mmol/L BUN 13 10 (7-17) mg/dL Creatinine 0.56 0.54 (0.52-1.04) mg/dL Glucose 102 H 103 H (74-99) mg/dL Calcium 10.4 H 9.1 (8.4-10.2) mg/dL AST 41 H 34 (14-36) U/L ALT 63 H 51 H (4-34) U/L Alkaline Phosphatase 68 51 (38-126) U/L Total Protein 8.1 6.6 (6.3-8.2) g/dL Albumin 4.8 3.9 (3.5-5.0) g/dL Calcium panel 10/12/22 10/13/22 Range/Units 17:22 03:43 Calcium 10.4 H 9.1 (8.4-10.2) mg/dL Albumin 4.8 3.9 (3.5-5.0) g/dL Pituitary panel 10/12/22 10/13/22 Range/Units 17:22 03:43 Sodium 138 137 (137-145) mmol/L Potassium 4.0 4.6 (3.5-5.1) mmol/L Chloride 103 106 (98-107) mmol/L Carbon Dioxide 22 23 (22-30) mmol/L BUN 13 10 (7-17) mg/dL Creatinine 0.56 0.54 (0.52-1.04) mg/dL Glucose 102 H 103 H (74-99) mg/dL Calcium 10.4 H 9.1 (8.4-10.2) mg/dL Adrenal panel 10/12/22 10/13/22 Range/Units 17:22 03:43 Sodium 138 137 (137-145) mmol/L Potassium 4.0 4.6 (3.5-5.1) mmol/L Chloride 103 106 (98-107) mmol/L Carbon Dioxide 22 23 (22-30) mmol/L BUN 13 10 (7-17) mg/dL Creatinine 0.56 0.54 (0.52-1.04) mg/dL Glucose 102 H 103 H (74-99) mg/dL Calcium 10.4 H 9.1 (8.4-10.2) mg/dL Total Bilirubin 0.8 0.6 (0.2-1.3) mg/dL AST 41 H 34 (14-36) U/L ALT 63 H 51 H (4-34) U/L Alkaline Phosphatase 68 51 (38-126) U/L Total Protein 8.1 6.6 (6.3-8.2) g/dL Albumin 4.8 3.9 (3.5-5.0) g/dL Assessment and Plan Assessment: Impression: Incidental finding of nodules in both breast on computed tomography scan Fibrocystic breast changes Chest discomfort most likely musculoskeletal. GERD. Plan: Bilateral mammogram and bilateral ultrasound Appointment in office after an exam and ultrasound
[2022-10-13] MEDS ORDERED: lisinopriL 5 MG TAB PO SCH (21:00)
== END 2022-10-13 13:10 | disposition home or self-care (01) ==
LOC: EC 16:54 → 6NMEDSUR 22:38
PROVIDERS: ADMIT Internal Medicine; ATTEND Internal Medicine
DX: R07.89 Other chest pain (principal); K21.9 Gastro-esophageal reflux disease without esophagitis; I45.10 Unspecified right bundle-branch block; I10 Essential (primary) hypertension; E78.00 Pure hypercholesterolemia, unspecified; F41.1 Generalized anxiety disorder; K76.0 Fatty (change of) liver, not elsewhere classified; N63.10 Unspecified lump in the right breast, unspecified quadrant; E66.9 Obesity, unspecified; Z68.31 Body mass index [BMI] 31.0-31.9, adult; R91.8 Other nonspecific abnormal finding of lung field; Z79.899 Other long term (current) drug therapy; Z88.1 Allergy status to other antibiotic agents; Z88.5 Allergy status to narcotic agent; Z88.2 Allergy status to sulfonamides; Z88.8 Allergy status to other drugs, medicaments and biological substances; Z91.048 Other nonmedicinal substance allergy status; Z90.710 Acquired absence of both cervix and uterus; Z90.49 Acquired absence of other specified parts of digestive tract; Z90.721 Acquired absence of ovaries, unilateral; Z98.890 Other specified postprocedural states; Z80.7 Family history of other malignant neoplasms of lymphoid, hematopoietic and related tissues; Z80.41 Family history of malignant neoplasm of ovary; Z80.0 Family history of malignant neoplasm of digestive organs
CPT/HCPCS: 96376; 96374; 96375; 99285; 36415; 93005; 93306; 93351; 85379; 83880; 80053 ×2; 82150; 83690 ×2; 83735 ×2; 84484 ×2; 85025 ×2; 85610; 85730; 76705; 71275; G0378 ×2; J2405 ×2; J1170; C9113 ×2; Q9967

== ENCOUNTER → 2024-07-04 | Outpatient (CLI) | payer BC ==
[2024-07-04 14:37] VITALS: BP 143/81; PULSE 76; RESP 16; TEMP 97.8
--- NOTE | 2024-07-04 15:28 | P.SLEEP ---
History of Present Illness H&P Date: 07/04/24 This is a 58-year-old female patient was referred to me by her export packer for sleep apnea evaluation. The patient was seeing a export packer for symptoms of palpitations. She was also having atypical chest pain. The workup that was done by cardiology included a recent cardiac stress test that showed no evidence of any reversible ischemia the patient's echocardiogram that was done on 11/02/2023 and 10/13/2022 showed normal ejection fraction with mild mitral regurgitation. The patient is known to have hypertension and history of breast cancer. In terms of her breast cancer, the patient underwent bilateral mastectomy for a right-sided breast cancer followed by chemotherapy and radiation therapy to the right breast and currently she is on letrozole. The patient seems to be in remission for now. She is experiencing fatigue and sleepiness during the day. During the course of her cancer treatment, the patient has gained weight and overall she is up by around 30 pounds. She is snoring. At times, she is waking up gasping for air however this is not frequent and occurs approximately once or twice a week. Her sleep is fragmented and the patient is waking up multiple times in the middle of the night to urinate. She typically gets up around 3-4 times in the middle of the night. Sh mindi sleeps on her side as the patient has chronic lymphedema in the right upper extremity. No sleepwalking. No sleep talking. She has grinding and she is working with a dentist to get a mouthguard. No anxiety. No panic attacks. No sleep paralysis. No hallucinations. No cataplexy. Her current Bagley score is at 5. At times, the patient gets uncomfortable as the patient has chronic back pain and she has undergone previous lumbar spine surgery approximately 15 years ago. Her symptoms of sciatica have also recurred. She drinks 2 cups of coffee in the morning. Drinks alcohol socially. No substance abuse. No head trauma. No history of stroke. No history of any atrial fibrillation or congestion heart failure. Denies falling asleep while driving. Occasionally, takes naps in the afternoon. She is retired. She is involved in taking care of her grandchild, yeyo. She has worked in for a [employer] company out of [employer] [place]. The current Bagley score is at 5. Review of Systems Constitutional: Reports daytime sleepiness, Reports weight gain Ears: deny: decreased hearing, ear discharge, earache, tinnitus Cardiovascular: Reports as per HPI, Reports palpitations Respiratory: Reports snoring Gastrointestinal: Reports as per HPI Genitourinary: Reports as per HPI Menstruation: Reports as per HPI Musculoskeletal: Reports as per HPI Musculoskeletal: right: elbow swelling, wrist swelling Integumentary: Reports as per HPI Neurological: Reports as per HPI Psychiatric: Reports as per HPI Endocrine: Reports as per HPI, Reports fatigue Hematologic/Lymphatic: Reports as per HPI Allergic/Immunologic: Reports as per HPI Past Medical History Past Medical History: Cancer, Hyperlipidemia, Hypertension Additional Past Medical History / Comment(s): rt breast cancer (double mast) History of Any Multi-Drug Resistant Organisms: None Reported Past Surgical History: Appendectomy, Breast Surgery, Hysterectomy, Orthopedic Surgery Additional Past Surgical History / Comment(s): double mastectomy Past Anesthesia/Blood Transfusion Reactions: No Reported Reaction Past Psychological History: Anxiety Additional Psychological History / Comment(s): pt and family state pt has anxiety Smoking Status: Never smoker - Past Family History Father Family Medical History: Diabetes Mellitus, GERD/Reflux, Hyperlipidemia, Hypertension Additional Family Medical History / Comment(s): snoring, headaches, restless legs Mother Family Medical History: Thyroid Disorder Medications and Allergies Home Medications Medication Instructions Recorded Confirmed Type ALPRAZolam [Xanax] 0.25 mg PO TID PRN 10/12/22 10/12/22 History Acetaminophen [Tylenol 8 Hour] 650 - 1,300 mg PO Q8H PRN 10/12/22 10/12/22 History lisinopriL [Zestril] 5 mg PO HS 10/12/22 10/12/22 History Famotidine [Pepcid] 20 mg PO HS #30 tablet 10/13/22 Rx Allergies Allergy/AdvReac Type Severity Reaction Status Date / Time adhesive tape Allergy Rash/Hives Verified 10/12/22 17:56 morphine AdvReac Vomiting Verified 10/12/22 17:56 sulfamethoxazole AdvReac Vomiting Verified 10/12/22 17:56 [From Bactrim] trimethoprim [From Bactrim] AdvReac Vomiting Verified 10/12/22 17:56 synthetic steroids Allergy red man Uncoded 10/12/22 17:56 syndrome Physical Exam Vitals: Vital Signs Temp Pulse Resp BP Pulse Ox 07/04/24 14:35 97.8 F 76 16 143/81 99 The patient appeared well nourished and normally developed. Vital signs as documented. The patient has a body mass index of 32.4 Head exam is unremarkable. No scleral icterus or corneal arcus noted. Neck is without jugular venous distension, thyromegaly, or carotid bruits. Carotid upstrokes are brisk bilaterally. The patient has a Mallampati class IV with crowding the posterior pharynx Lungs are clear to auscultation and percussion. Cardiac exam reveals the PMI to be normally sized and situated. Rhythm is regular. First and second heart sounds normal. No murmurs, rubs or gallops. Abdominal exam reveals normal bowel sounds, no masses, no organomegaly and no aortic enlargement. Extremities are nonedematous and both femoral and pedal pulses are normal. There is lymphedema involving the right upper extremity related to previous breast surgery and radiation therapy. Examination of the skin revealed no evidence of significant rashes, suspicious appearing nevi or other concerning lesions. Neurologically, the patient is awake and alert and the patient does not have any focal neurological deficit. Cranial nerves are essentially intact. Assessment and Plan Plan: Chronic fatigue/sleepiness, current Bagley score is at 5. Consider the possibility of obstructive sleep apnea as the patient has history of snoring and occasional gasping for air during sleep. Sleep is fragmented due to nocturia. The patient has a Mallampati class IV with crowding of the posterior pharynx. Breast cancer post bilateral mastectomy followed by chemotherapy and radiation therapy. The patient is currently on letrozole Lymphedema involving the right upper extremity Chronic back pain with previous lumbar spine surgery and the patient has ongoing symptoms of radiculopathy and sciatica Hypertension Body mass index is 32.4 and the patient has gained around 30 pounds over the past 5 years. Grinding Chemotherapy induced hepatotoxicity with elevated LFTs, improving. The patient also has a fatty liver. Plan Encouraged weight loss Maintain good sleep hygiene measures Will proceed with a screening polysomnography to evaluate the patient for underlying sleep apnea/sleep breathing disorder Will make further recommendations on treatment options based on the results of the PSG. Sleep Note - Sleep Data ESS Total: 5 - Sleep Note Sleep Note: Temperature: 97.8 F Pulse Rate: 76 Respiratory Rate: 16 Blood Pressure: 143/81 SpO2: 99 Height: Weight: BMI: Neck Circumference: 14
== END ==
LOC: 3 N SLEEP 13:53
PROVIDERS: ATTEND Internal Medicine Critical Care Medicine
DX: K71.9 Toxic liver disease, unspecified (principal); G47.33 Obstructive sleep apnea (adult) (pediatric); I10 Essential (primary) hypertension; M54.9 Dorsalgia, unspecified; G89.29 Other chronic pain; Z68.32 Body mass index [BMI] 32.0-32.9, adult; Z91.048 Other nonmedicinal substance allergy status; Z88.8 Allergy status to other drugs, medicaments and biological substances; Z88.5 Allergy status to narcotic agent; Z88.2 Allergy status to sulfonamides; Z88.1 Allergy status to other antibiotic agents
CPT/HCPCS: 99211

== ENCOUNTER → 2024-08-22 | Outpatient (CLI) | payer BC ==
--- NOTE | 2024-08-28 21:35 | P.PCN ---
Date of Procedure: 08/22/24 Operative Findings: Home sleep study report History This is a 58-year-old female patient was referred to me by her equipment operator wage hand for sleep apnea evaluation. The patient was seeing a equipment operator wage hand for symptoms of palpitations. She was also having atypical chest pain. The workup that was done by cardiology included a recent cardiac stress test that showed no evidence of any reversible ischemia the patient's echocardiogram that was done on 11/02/2023 and 10/13/2022 showed normal ejection fraction with mild mitral regurgitation. The patient is known to have hypertension and history of breast cancer. In terms of her breast cancer, the patient underwent bilateral mastectomy for a right-sided breast cancer followed by chemotherapy and radiation therapy to the right breast and currently she is on letrozole. The patient seems to be in remission for now. She is experiencing fatigue and sleepiness during the day. During the course of her cancer treatment, the patient has gained weight and overall she is up by around 30 pounds. She is snoring. At times, she is waking up gasping for air however this is not frequent and occurs approximately once or twice a week. Her sleep is fragmented and the patient is waking up multiple times in the middle of the night to urinate. She typically gets up around 3-4 times in the middle of the night. She sleeps on her side as the patient has chronic lymphedema in the right upper extremity. No sleepwalking. No sleep talking. She has grinding and she is working with a dentist to get a mouthguard. No anxiety. No panic attacks. No sleep paralysis. No hallucinations. No cataplexy. Her current Gerald score is at 5. At times, the patient gets uncomfortable as the patient has chronic back pain and she has undergone previous lumbar spine surgery approximately 15 years ago. Her symptoms of sciatica have also recurred. She drinks 2 cups of coffee in the morning. Drinks alcohol socially. No substance abuse. No head trauma. No history of stroke. No history of any atrial fibrillation or congestion heart failure. Denies falling asleep while driving. Occasionally, takes naps in the afternoon. She is retired. She is involved in taking care of her grandchild, yeyo. She has worked in for a [email or web address] company out of [employer]. The current Gerald score is at 5. Physical findings Body mass index is 32 and the weight is 194 pounds Technical description The [employer] system was used to complete his home sleep study. This is a type III home sleep study evaluation. The total recording duration was 8 hours and 43 minutes. This study started 9:26 PM and ended at 6:12 AM. There was a total of 8 hours and 31 minutes of flow monitoring and 8 hours and 32 minutes of oxygen saturation monitoring. Results The respiratory analysis showed a total of 8 obstructive apneas and 41 obstructive hypopneas and the resulting AHI was 5.6 Oxygenation analysis The baseline pulse ox was 98% while awake. Average pulse ox during sleep was 93%. Minimum pulse ox was 88% and the patient spent approximately 1 minute of the sleep time below pulse ox of 89%. Cardiac summary Average heart rate was 61 with a minimum heart rate of 43 and a maximum heart rate of 94 Assessment Mild obstructive sleep apnea with an AHI of 5.8. No significant nocturnal oxygen saturation. Chronic fatigue/sleepiness, current Gerald score is at 5. I am not absolutely sure whether the patient's symptoms are related to obstructive sleep apnea. The patient's disease severity is mild. Consider the possibility of obstructive sleep apnea contributing to his symptoms of chroni fatigue and sleepiness as the patient has history of snoring and occasional gasping for air during sleep. Sleep is fragmented due to nocturia. The patient has a Mallampati class IV with crowding of the posterior pharynx. Breast cancer post bilateral mastectomy followed by chemotherapy and radiation therapy. The patient is currently on letrozole Lymphedema involving the right upper extremity Chronic back pain with previous lumbar spine surgery and the patient has ongoing symptoms of radiculopathy and sciatica Hypertension Body mass index is 32.4 and the patient has gained around 30 pounds over the past 5 years. Grinding Chemotherapy induced hepatotoxicity with elevated LFTs, improving. The patient also has a fatty liver. Plan Will discuss findings with the patient. As stated, disease severity is mild. Nevertheless, his history is classic for obstructive sleep apnea. I may consider offering a APAP therapy on the patient on a trial basis if she is willing to undertake the treatment. This will be further discussed with her in the office. Encouraged weight loss Maintain good sleep hygiene measures We will continue to follow.
== END ==
LOC: 3 N SLEEP 16:42
PROVIDERS: ATTEND Internal Medicine Critical Care Medicine
DX: C50.911 Malignant neoplasm of unspecified site of right female breast (principal); G47.33 Obstructive sleep apnea (adult) (pediatric); I89.0 Lymphedema, not elsewhere classified; I10 Essential (primary) hypertension; K76.0 Fatty (change of) liver, not elsewhere classified; T45.1X5A Adverse effect of antineoplastic and immunosuppressive drugs, initial encounter; R53.82 Chronic fatigue, unspecified; R35.1 Nocturia; R79.89 Other specified abnormal findings of blood chemistry; Z90.13 Acquired absence of bilateral breasts and nipples; Z88.5 Allergy status to narcotic agent; Z91.040 Latex allergy status; Z88.2 Allergy status to sulfonamides; Z88.8 Allergy status to other drugs, medicaments and biological substances